=== PATIENT | female | born 1955 | race Caucasian/White ===

== ENCOUNTER 2024-07-01 15:52 | Outpatient (OUT) | payer MEDICARE, BC, SELFPAY ==
[2024-07-01 16:50] LABS: Free T3 2.39 pg/mL (2.18-3.98)
== END 2024-07-01 15:53 | disposition home or self-care (01) ==
LOC: LAB 15:54
PROVIDERS: PCP Preventive Medicine Occupational Medicine
DX: R25.1 Tremor, unspecified (principal)
CPT/HCPCS: 36415; 84439; 84443; 84481